=== PATIENT | female | born 1970 | race Hispanic/Latino ===

== ENCOUNTER 2024-11-06 07:55 | Outpatient (CLI) | payer MEDICAID ==
[2024-11-06] MEDS ORDERED: Iopamidol 370 76% 100 ML VIAL ONE (10:02)
== END 2024-11-06 07:56 | disposition home or self-care (01) ==
LOC: CSHCT 07:55
PROVIDERS: ATTEND Specialist
DX: C50.911 Malignant neoplasm of unspecified site of right female breast (principal); K86.2 Cyst of pancreas
CPT/HCPCS: 71260; 74177; Q9967